=== PATIENT | male | born 1965 | race Hispanic/Latino ===

== ENCOUNTER 2017-08-27 10:48 | Outpatient (RCR) | payer OTHER ==
[~2017-08-27 10:48] MED LIST: ATORVASTATIN PO; INVOKAMET PO; LISINOPRIL10 MG PO; LOVAZA PO
== END 2017-09-01 ==
LOC: PT 10:48
PROVIDERS: ATTEND Family Medicine
DX: S39.012A Strain of muscle, fascia and tendon of lower back, initial encounter (principal); M54.5 Low back pain; M62.81 Muscle weakness (generalized)

== ENCOUNTER 2017-09-25 07:58 | Outpatient (RCR) | payer OTHER | END 2017-10-02 | LOC: PT 07:58 | PROVIDERS: ATTEND Family Medicine | DX: S33.5XXA Sprain of ligaments of lumbar spine, initial encounter (principal); M54.5 Low back pain; M62.81 Muscle weakness (generalized) ==

== ENCOUNTER 2017-12-25 09:00 | Outpatient (RCR) | payer OTHER | END 2018-01-02 | LOC: PT 09:00 | PROVIDERS: ATTEND Family Medicine | DX: S33.5XXA Sprain of ligaments of lumbar spine, initial encounter (principal); S63.502A Unspecified sprain of left wrist, initial encounter ==

== ENCOUNTER 2018-01-19 07:00 | Outpatient (RCR) | payer OTHER | END 2018-02-01 | LOC: PT 07:00 | PROVIDERS: ATTEND Family Medicine | DX: S33.9XXD Sprain of unspecified parts of lumbar spine and pelvis, subsequent encounter (principal); M54.5 Low back pain; M53.86 Other specified dorsopathies, lumbar region; M62.81 Muscle weakness (generalized) ==

== ENCOUNTER 2018-02-16 10:54 | Outpatient (RCR) | payer OTHER | END 2018-03-04 | LOC: PT 10:54 | PROVIDERS: ATTEND Family Medicine | DX: S33.9XXD Sprain of unspecified parts of lumbar spine and pelvis, subsequent encounter (principal); M54.5 Low back pain; M53.86 Other specified dorsopathies, lumbar region; M62.81 Muscle weakness (generalized) ==

== ENCOUNTER 2018-03-17 09:54 | Outpatient (RCR) | payer OTHER | END 2018-04-03 | LOC: PT 09:54 | PROVIDERS: ATTEND Family Medicine | DX: S33.9XXD Sprain of unspecified parts of lumbar spine and pelvis, subsequent encounter (principal); M54.5 Low back pain; M62.81 Muscle weakness (generalized); M53.86 Other specified dorsopathies, lumbar region ==

== ENCOUNTER → 2019-09-10 | Outpatient (CLI) | payer OTHER ==
--- NOTE | 2019-09-10 10:35 | Diagnostic Imaging Report ---
TECHNIQUE: Magnetic resonance imaging of the LEFT SHOULDER was performed WITHOUT injected contrast. COMPARISON: None available. HISTORY: Left shoulder FINDINGS: MUSCLES AND TENDONS: Rotator Cuff: Tendons: Small interstitial tear of the anterior fibers of the supraspinatus seen on sagittal image 11 and coronal image 11. Muscles: No focal muscle atrophy. Biceps Tendon: The long head of the biceps tendon is intact and within the intertubercular groove. GLENOHUMERAL JOINT: Glenoid Labrum: Superior labral tearing. Articular Cartilage: No focal defect. AC JOINT AND ACROMION: Mild hypertrophic degenerative changes of the acromioclavicular joint. The acromion is unremarkable. BONE: No acute fracture. SOFT TISSUES: Otherwise, the soft tissues appear unremarkable. IMPRESSION: Supraspinatus small interstitial tear of the anterior humeral insertion. No high-grade tear. Superior labral tear. Signed by: Dr. Braulio Resendez M.D. on 09/10/2019 10:32 AM
== END ==
LOC: MRI 09:27
PROVIDERS: ATTEND Specialist
DX: M75.102 Unspecified rotator cuff tear or rupture of left shoulder, not specified as traumatic (principal)

== ENCOUNTER → 2019-09-24 | Outpatient (CLI) | payer OTHER ==
[~2019-09-24] MED LIST changes: +ATORVASTATIN CA20 MG PO; +FAMOTIDINE 20 MG/2 ML VIAL IV ONE; +FENTANYL CITRATE/PF 100MCG/2 ML INJ ONE; +HYDROMORPHONE 1MG/1ML INJ ONE; +INVOKAMET 150-1 EACH PO; +LOVAZA1 GM PO; +TRULICITY0.75 MG/0. IJ
== END ==
LOC: DX 13:54 → EDBD 09-29 08:00 → MERGE 09-29 08:00 → EDSTATUS 09-29 08:00
PROVIDERS: ATTEND Specialist
DX: Z01.818 Encounter for other preprocedural examination (principal); Z11.59 Encounter for screening for other viral diseases
CPT/HCPCS: 87635; 93005; J1170; J3010

== ENCOUNTER → 2019-09-29 | Day surgery (SDC) | payer OTHER ==
[2019-09-24 17:51] LABS: ANION GAP 12.1 mmol/L (8-16); BLOOD UREA NITROGEN 15 mg/dL (7-26); BUN/CREATININE RATIO 15 (6-25); CALCIUM 9.2 mg/dL (8.4-10.2); CARBON DIOXIDE 24 mmol/L (22-29); CHLORIDE 107 mmol/L (98-107); CREATININE, SERUM 0.98 mg/dL (0.72-1.25); EST GLOMERULAR FILTRATION RATE > 60 ML/MIN (60-); GLUCOSE 115 mg/dL (74-118); POTASSIUM 4.1 mmol/L (3.5-5.1); SODIUM 139 mmol/L (136-145)
[~2019-09-29] MED LIST changes: +ACETAMINOPHEN 1000 MG/100 ML IV ONE; +CEFAZOLIN SOD 1 GM/NS 50ML 100 ML IV ONE; +DEXAMETHASONE SOD PHOS INJ 4 MG/ML VIAL ONE; +EPINEPHRINE 1 MG/ML 30ML VIAL ONE; +LIDOCAINE HCL 2% JELLY 5 ML TUBE ONE; +LIDOCAINE HCL 2% LOCAL INJ 5 ML SDV VIAL INJ ONE; +ONDANSETRON HCL INJ 2MG/ML 2ML 2 MG/ML VIAL ONE; +PROPOFOL IV EMULSION 10 MG/ML 20 ML VIAL ONE; +ROCURONIUM BROMIDE 10 MG/ML 5ML VIAL IV ONE; +ROPIVACAINE 0.5% 5 MG/ML 30 ML SDV ONE; +SEVOFLURANE INHAL SOLN 250 ML PEN BTL ONE
[2019-09-29 13:15] VITALS: BP 104/64
--- NOTE | 2019-10-08 21:11 | Operative Report ---
DATE OF PROCEDURE: 09/29/2019 SURGEON: Jasmeet Bejarano MD PREOPERATIVE DIAGNOSES: Left shoulder labral tear, left shoulder acromioclavicular joint arthritis. POSTOPERATIVE DIAGNOSES: Left shoulder arthrofibrosis, left shoulder synovitis, left shoulder labral tear, left shoulder arthroscopic rotator cuff reconstruction, left shoulder arthroscopic subacromial decompression and acromioplasty, and left shoulder arthroscopic distal clavicle resection. 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 ANESTHESIA: General endotracheal intubation anesthesia. IV FLUIDS: Per the anesthesia record. BRIEF DESCRIPTION OF THE PATIENT'S OPERATIVE PROCEDURE: Mr. Rodas was taken to the operating room and placed in supine position on the operating table. Following induction of general anesthesia as well as endotracheal intubation, the patient's left upper extremity was examined under anesthesia. He was found to have a normal-appearing shoulder. There was no evidence of instability in the shoulder. Passive forward flexion of the shoulder joint demonstrated 150 degrees of forward flexion, at which point significant stiffness was encountered in the shoulder. The shoulder was gently manipulated under anesthesia and thus resulted in freeing of fibrotic bands within the shoulder joint. This restored full passive forward flexion, abduction to the shoulder joint. The shoulder was then prepped and draped in standard surgical fashion. Standard posterior, lateral and anterior portals were created without difficulty. The scope was placed in the shoulder joint atraumatically. Examination of glenohumeral articulation demonstrated no significant evidence of chondromalacia. There was diffuse synovitis within the shoulder joint. There were no loose bodies within the shoulder. An anterior portal was created with an outside-in technique. A probe was placed in the shoulder joint and examination of the biceps tendon found that it was intact. The biceps anchor, however, was torn free from the superior rim of the glenoid from the 10 o'clock position to the 2 o'clock position. A shaver was placed in the shoulder joint and the superior rim of the glenoid was debrided. The labrum was also debrided at this time. Two knotless suture anchors were then inserted along the rim of the glenoid and the suture arms were woven about the labrum. The anchors were then seated firmly stabilizing the labrum to the superior rim of the glenoid. A probe was then used to assess the repair and excellent tension of the sutures with firm repair of the labrum was identified at this time. The shoulder was then deflated with sterile normal saline. The scope was then placed in subacromial space and significant bursal inflammation was encountered. A lateral portal was carried through an outside-in technique, and a bursectomy was performed. Examination of the bursal surface of the rotator cuff demonstrated a high-grade bursal surface tear of the rotator cuff at the leading edge of the rotator cuff tissue. An elevator was used to elevate this tissue from its normal insertion site and a single anchor was inserted into the tuberosity of the humerus. A shaver was used to debride the insertion site to a bleeding bony bed. The suture arms were then woven through the rotator cuff tissue and the rotator cuff was then advanced and tied firmly over its normal insertion site. This resulted in complete repair of this injury. The coracoacromial ligament was then resected and aggressive acromioplasty was performed. The shoulder was placed through range of motion and there was no impingement of the shoulder on the rotator cuff tissues. The scope was then placed in the anterior portal and the acromioclavicular joint was isolated. A 1 cm section of the acromion was then resected using the shaver. The shoulder was then inflated with sterile normal saline. All portal sites were closed. Soft dressings were applied and the patient was provided a shoulder immobilizer, awakened, and taken to the postanesthesia care in stable condition. MD LOU Contreras/ANNE-MARIE /[id number]
== END | disposition home or self-care (01) ==
LOC: OR 05:49
PROVIDERS: ATTEND Specialist
DX: S43.432A Superior glenoid labrum lesion of left shoulder, initial encounter (principal); M19.012 Primary osteoarthritis, left shoulder; M65.812 Other synovitis and tenosynovitis, left shoulder; M24.612 Ankylosis, left shoulder; E11.9 Type 2 diabetes mellitus without complications; E66.01 Morbid (severe) obesity due to excess calories; I10 Essential (primary) hypertension; X58.XXXA Exposure to other specified factors, initial encounter; Z01.810 Encounter for preprocedural cardiovascular examination
CPT/HCPCS: 29807; 29824; 29826; 29827; 36415 ×2; 80048; 82948; 93005 ×2; C1713; J0131; J0690; J1100; J1170; J2001 ×2; J2405; J2704; J2795; J3010

== ENCOUNTER 2019-12-31 09:00 | Outpatient (RCR) | payer OTHER ==
[~2019-12-31 09:00] MED LIST changes: -ACETAMINOPHEN 1000 MG/100 ML IV ONE; -CEFAZOLIN SOD 1 GM/NS 50ML 100 ML IV ONE; -DEXAMETHASONE SOD PHOS INJ 4 MG/ML VIAL ONE; -EPINEPHRINE 1 MG/ML 30ML VIAL ONE; -FAMOTIDINE 20 MG/2 ML VIAL IV ONE; -FENTANYL CITRATE/PF 100MCG/2 ML INJ ONE; -HYDROMORPHONE 1MG/1ML INJ ONE; -LIDOCAINE HCL 2% JELLY 5 ML TUBE ONE; -LIDOCAINE HCL 2% LOCAL INJ 5 ML SDV VIAL INJ ONE; -ONDANSETRON HCL INJ 2MG/ML 2ML 2 MG/ML VIAL ONE; -PROPOFOL IV EMULSION 10 MG/ML 20 ML VIAL ONE; -ROCURONIUM BROMIDE 10 MG/ML 5ML VIAL IV ONE; -ROPIVACAINE 0.5% 5 MG/ML 30 ML SDV ONE; -SEVOFLURANE INHAL SOLN 250 ML PEN BTL ONE
== END 2020-01-03 ==
LOC: OT 09:00
PROVIDERS: ATTEND Specialist
DX: M75.102 Unspecified rotator cuff tear or rupture of left shoulder, not specified as traumatic (principal)

== ENCOUNTER 2020-01-31 10:20 | Outpatient (RCR) | payer OTHER | END 2020-02-02 | LOC: OT 10:20 | PROVIDERS: ATTEND Specialist | DX: S46.002D Unspecified injury of muscle(s) and tendon(s) of the rotator cuff of left shoulder, subsequent encounter (principal); M25.512 Pain in left shoulder; M25.612 Stiffness of left shoulder, not elsewhere classified; R53.1 Weakness ==

== ENCOUNTER 2020-02-04 07:59 | Outpatient (RCR) | payer OTHER | END 2020-03-04 | LOC: OT 07:59 | PROVIDERS: ATTEND Specialist | DX: S46.002D Unspecified injury of muscle(s) and tendon(s) of the rotator cuff of left shoulder, subsequent encounter (principal); M25.512 Pain in left shoulder; M25.612 Stiffness of left shoulder, not elsewhere classified; R53.1 Weakness ==

== ENCOUNTER 2020-02-26 12:03 | Emergency (ER) | payer OTHER ==
[~2020-02-26] VITALS: Ht 167.6 cm; Wt 117.9 kg
[2020-02-26] MEDS ORDERED: LIDOCAINE HCL 1% LOCAL INJ 20 ML VIAL INJ ONE (12:45)
[2020-02-26] MEDS ORDERED: BUPIVACAINE HCL 0.5% 10ML MPF VIAL INJ ONE (12:45)
--- NOTE | 2020-02-26 13:53 | Diagnostic Imaging Report ---
X-ray 3 views HISTORY: Pain. COMPARISON: None available. FINDINGS: Bones/joints: There is an acute displaced fracture involving the distal phalangeal tuft of the thumb. No dislocation Soft tissues: There is soft tissue laceration in line with the fracture. IMPRESSION: Skin laceration with associated displaced fracture involving the distal phalangeal tuft of the thumb. Signed by: Avery Madrid MD on 02/26/2020 1:50 PM
--- NOTE | 2020-02-26 13:54 | Emergency Department Note ---
History of Present Illnes History of Present Illness Chief Complaint: Laceration History of Present Illness This is a 54 year old male PATIENT IN FROM HOME WITH COMPLAINTS OF ZELALEM ING THE TIP OF LEFT THUMB WITH A HATCHET WHILE CHOPPING WOOD; RATES PAIN 6/10; BLEEDING CONTROLLED, APPEARS IN NO DISTRESS, RESP EVEN AND NONLABORED. Historian: Patient Arrival Mode: Car Sash Maker Required: No Onset (how long ago): minute(s) Location: LEFT THUMB Quality: LACERATION Radiation: Reports non-radiation Severity: moderate Onset quality: sudden Timing of current episode: constant Progression: unchanged Chronicity: new Context: Reports trauma/injury; Denies recent illness Relieving factors: none Exacerbating factors: none Associated symptoms: Reports denies other symptoms Past Medical/Family History Physician Review I have reviewed the patient's past medical and family history. Any updates have been documented here. Past Medical History Recent Fever: No Clinical Suspicion of Infectio: No New/Unexplained Change in Ment: No Past Medical History: Hypertension, Diabetes, Hyperlipedemia Past Surgical History: Appendectomy Other Surgery: LEFT ROTATOR CUFF Social History Smoking Cessation: Never Smoker Counseling Performed: No Alcohol Use: Social Any Illegal Drug Use: No TB Exposure/Symptoms: No Physically hurt or threatened: No Family History Family history of heart diseas: No Other Any Pre-Existing Lines (PICC,: No Review of Systems Review of Systems Constitutional: Reports no symptoms EENTM: Reports no symptoms Cardiovascular: Reports no symptoms Respiratory: Reports no symptoms Gastrointestinal: Reports no symptoms Genitourinary: Reports no symptoms Musculoskeletal: Reports as per HPI Integumentary: Reports as per HPI Neurological: Reports no symptoms Psychological: Reports no symptoms Endocrine: Reports no symptoms Hematological/Lymphatic: Reports no symptoms Physical Exam Related Data Allergies: Coded Allergies: No Known Allergies (Unverified , 07/03/16) Triage Vital Signs Vital Signs Date Time Temp Pulse Resp B/P (MAP) Pulse Ox O2 Delivery O2 Flow Rate FiO2 02/26/20 12:07 97.1 91 18 99/61 99 Room Air Vital signs reviewed: Yes Physical Exam CONSTITUTIONAL Constitutional: Present well-developed, Present well-nourished HENT HENT: Present normocephalic, Present atraumatic, Present oropharynx clear/moist, Present nose normal HENT L/R: Present left ext ear normal, Present right ext ear normal EYES Eyes: Reports PERRL, Reports conjunctivae normal NECK Neck: Present ROM normal PULMONARY Pulmonary: Present effort normal, Present breath sounds normal CARDIOVASCULAR Cardiovascular: Present regular rhythm, Present heart sounds normal, Present capillary refill normal, Present normal rate GASTROINTESTINAL Abdominal: Present soft, Present nontender, Present bowel sounds normal GENITOURINARY Genitourinary: Present exam deferred SKIN Skin: Present warm, Present dry, Present other (PARTIAL AMPUTATION OF DISTAL THUMB INVOLVING NAIL/NAILBED) MUSCULOSKELETAL Musculoskeletal: Present ROM normal NEUROLOGICAL Neurological: Present alert, Present oriented x 3, Present no gross motor or sensory deficits PSYCHOLOGICAL Psychological: Present mood/affect normal, Present judgement normal Results Imaging Imaging results reviewed: Yes Assessment & Plan Medical Decision Making MDM PARTIAL AMPUTATION OF DISTAL LEFT THUMB - CHECK XRAY TO SEE IF BONE INVOLVEMENT, HAND SURGEON DR SIMMONS CONSULTED Reassessment Reassessment REPAIR BY DR SIMMONS, [facility], KEFLEX, TYL #3, OTC IBUPROFEN, F/U FRIDAY Assessment & Plan Final Impression: (1) Partial traumatic amputation of left thumb through phalanx Depart Disposition: HOME, SELF-CARE Last Vital Signs Date Time Temp Pulse Resp B/P (MAP) Pulse Ox O2 Delivery O2 Flow Rate FiO2 02/26/20 12:07 97.1 91 18 99/61 99 Room Air Home Meds Reported Medications Dulaglutide (Trulicity) 0.75 Mg/0.5 Ml Pen.injctr, IJ WEEKLY 09/29/19 Canagliflozin/Metformin HCl (Invokamet 150-1,000 mg Tablet) 1 Each Tablet, PO B ID 09/23/19 Atorvastatin Calcium (ATORVASTATIN CALCIUM) 20 Mg Tablet, 40 MG PO HS, #30 TAB 09/23/19 Lisinopril (LISINOPRIL) 10 Mg Tablet, 20 MG PO HS, TAB 09/23/19 [place]-3 Acid Ethyl Esters (LOVAZA) 1 Gm Capsule, 1 GM PO BID, CAP THERAPEUTICALLY SUBSTITUTED WITH OMEGA 3 FATTY ACID 09/23/19 Medications in the ED Lidocaine HCl 20 ml ONCE ONCE INJ ; Start 02/26/20 at 12:45; Stop 02/26/20 at 12:46; Status DC Bupivacaine HCl 10 ml ONCE ONCE INJ ; Start 02/26/20 at 12:45; Stop 02/26/20 at 12:46; Status DC NILTON JOVEL MD Feb 26, 2020 13:54
--- NOTE | 2020-02-28 08:33 | Operative Report ---
DATE OF PROCEDURE: 02/26/2020 SURGEON: Albania Overton MD PREPROCEDURE DIAGNOSIS: Left thumb nail bed injury, open fracture. POSTPROCEDURE DIAGNOSIS: Left thumb nail bed injury, open fracture. PROCEDURE PERFORMED: Irrigation and debridement of left thumb distal phalanx open fracture, left thumb nail bed repair, peripheral nerve block. 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 ANESTHESIA: Local only. COMPLICATIONS: None. SPECIMENS: None. ESTIMATED BLOOD LOSS: Minimal. INDICATIONS FOR PROCEDURE: Ben Rodas is a 54-year-old male, who sustained a left thumb fingertip partial amputation and nail bed injury. He presented to the emergency department and x-rays demonstrated a distal phalanx fracture and a nail bed injury and evaluation demonstrated nail bed injury. He was indicated for nail bed repair and debridement of the fracture. Benefits and risks of the surgery discussed with the patient including bleeding, infection, damage to vascular structures, need for additional surgery, persistent pain, nonunion, stiffness, possible loss of life or limb and knowing that he elects to proceed. DESCRIPTION OF PROCEDURE: The patient was identified in the emergency room. A preprocedural time-out was called and consent was obtained. The left thumb was then underwent a peripheral nerve block using 1% lidocaine and 0.5% Marcaine into the locally. Once appropriate anesthesia was obtained, it was then clamped and then prepped and draped in the usual sterile fashion. There was noted to be an oblique laceration along the radial aspect of the thumb before entering ulnar aspect of the nail bed. The wound was copiously irrigated. The open fracture of the distal phalanx was identified and was gently curetted out to debride the bone. Copious irrigation was then continued in the form to remove any hematoma or clot. After this was performed, the skin was then closed with 3-0 nylon sutures. The nail bed was then repaired anatomically using 6-0 plain catgut suture. Once this was performed, the nail bed was noted to line up nicely and with stabilization of the fingertip and the fracture. An Adaptic was placed beneath the nail fold followed by Xeroform and a soft sterile dressing followed by a finger splint. The fingers have remained warm and well-perfused at the conclusion of the procedure with excellent cap refill. A soft sterile dressing was then placed. The patient tolerated the procedure well without any immediate complications. POSTOPERATIVE PLAN: The patient will be discharged home today. He will see us back in clinic in five days for a wound check and transition to a fingertip protector. MD EVERETT Judd/MODL /[id number]
--- NOTE | 2020-02-28 08:38 | Consultation ---
DATE OF CONSULTATION: 02/26/2020 REQUESTING PHYSICIAN: Yuan Waddell MD CHIEF COMPLAINT: Left thumb pain. 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 He accidentally smashed his left thumb and sustained a partial fingertip amputation to the left thumb. He states that he had significant pain after just to the left thumb. He has a history of chronic numbness and tingling to that left hand that he has had since he was a child and had a wrist laceration. He denies any pain elsewhere. No pain up into his other fingers or anywhere else in the arm. No fevers or chills. PAST MEDICAL HISTORY: Type 2 diabetes. PAST SURGICAL HISTORY: None. 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 No drug, tobacco, or alcohol use. FAMILY HISTORY: Not pertinent. MEDICATIONS: None listed. REVIEW OF SYSTEMS: Negative for fever or chills. Positive for numbness and tingling. PHYSICAL EXAMINATION: EXTREMITIES: Focused evaluation of the left upper extremity demonstrates an oblique partial fingertip amputation through the nail bed of the left thumb. The nail plate has been avulsed. The fingertip appears warm and well perfused. He has active thumb extension and flexion at the thumb IP joint. He has atrophy of the thenar musculature and 0/5 APB function. There is a healed laceration present along the wrist crease from his prior wrist injury. Sensation is diminished in the fingertips in the median nerve distribution. No tenderness to palpation about the other fingers or wrist or elbow. Focused evaluation of the right upper extremity demonstrates skin intact. Sensation intact to light touch in all fingers. Intact thumb extension and flexion at the IP joint and 5/5 APB. IMAGING: X-rays of the left hand demonstrate a distal phalanx fracture. The left thumb appears to be very small without any significant displacement. ASSESSMENT: Left thumb nail bed injury, partial fingertip amputation. PLAN: Discussed with the patient the injury requires nail bed repair. Discussed with him that his fracture does not require any operative stabilization. Planned for nail bed repair in the emergency department, which he tolerated well. He will be discharged home with Keflex. To leave his dressing on until he will see us back in clinic in 5 days for wound check and transition to a fingertip protector. All questions were answered, he was in agreement with the plan. MD EVERETT Judd/MODL /[id number]
== END 2020-02-26 14:13 | disposition home or self-care (01) ==
LOC: ER 12:23
DX: S68.022A Partial traumatic metacarpophalangeal amputation of left thumb, initial encounter (principal); W27.8XXA Contact with other nonpowered hand tool, initial encounter; Y99.8 Other external cause status; I10 Essential (primary) hypertension; E11.9 Type 2 diabetes mellitus without complications; E78.5 Hyperlipidemia, unspecified
CPT/HCPCS: 11760; 73130; 99283; J2001

== ENCOUNTER 2020-05-03 10:36 | Outpatient (RCR) | payer OTHER | END 2020-05-04 | LOC: OT 10:36 | PROVIDERS: ATTEND Orthopaedic Surgery | DX: G56.02 Carpal tunnel syndrome, left upper limb (principal); R20.9 Unspecified disturbances of skin sensation; M25.642 Stiffness of left hand, not elsewhere classified; M25.632 Stiffness of left wrist, not elsewhere classified | CPT/HCPCS: 97110 ×3; 97165; L3808 ==

== ENCOUNTER 2020-05-23 08:58 | Outpatient (RCR) | payer OTHER ==
[2020-06-02] MEDS ORDERED: PIOGLITAZONE HC45 MG PO (15:36)
== END 2020-06-04 ==
LOC: OT 08:58
PROVIDERS: ATTEND Orthopaedic Surgery
DX: D36.12 Benign neoplasm of peripheral nerves and autonomic nervous system, upper limb, including shoulder (principal); G56.02 Carpal tunnel syndrome, left upper limb; R20.9 Unspecified disturbances of skin sensation; M25.642 Stiffness of left hand, not elsewhere classified; M25.632 Stiffness of left wrist, not elsewhere classified
CPT/HCPCS: 97010 ×4; 97110 ×4; 97140; L3906

== ENCOUNTER 2020-05-31 03:34 | Emergency (ER) | payer OTHER ==
[~2020-05-31] VITALS: Ht 167.6 cm; Wt 117.9 kg
== END 2020-05-31 04:00 | disposition home or self-care (01) ==
LOC: ER 03:39
DX: U07.1 COVID-19 (principal); R05 Cough; R50.9 Fever, unspecified; E11.9 Type 2 diabetes mellitus without complications; E78.5 Hyperlipidemia, unspecified
CPT/HCPCS: 99282

== ENCOUNTER 2020-06-02 13:30 | Inpatient (IN) | payer OTHER ==
[~2020-06-02] VITALS: Ht 167.6 cm; Wt 117.9 kg
[2020-06-02 14:39] LABS: BASOPHILS % 0.2 % (0.0-1.0); HEMATOCRIT 38.8 % (38.2-49.6); HEMOGLOBIN 12.8 g/dL (14.0-18.0); LYMPHOCYTES # (AUTO) 0.8 (1.0-3.2); LYMPHOCYTES % 5.2 % (18.0-39.1); MEAN CORPUSCULAR HEMOGLOBIN 28.6 pg (28-32); MEAN CORPUSCULAR VOLUME 86.6 fL (81-99); MONOCYTES # (AUTO) 0.9 (0.2-0.8); MONOCYTES % 5.9 % (4.4-11.3); PLATELET COUNT 263 x10e3/uL (140-360); RED BLOOD COUNT 4.48 x10e6/uL (4.3-5.7); RED CELL DISTRIBUTION WIDTH 14.9 % (11.7-14.4)
[2020-06-02 14:55] LABS: ALANINE AMINOTRANSFERASE 127 IU/L (0-55); ALBUMIN 2.7 g/dL (3.5-5.0); ALBUMIN/GLOBULIN RATIO 0.5 (0.8-2.0); ALKALINE PHOSPHATASE 144 IU/L (40-150); ANION GAP 17.3 mmol/L (8-16); BLOOD UREA NITROGEN 18 mg/dL (7-26); BUN/CREATININE RATIO 20 (6-25); CALCIUM 8.9 mg/dL (8.4-10.2); CARBON DIOXIDE 21 mmol/L (22-29); CHLORIDE 100 mmol/L (98-107); CREATINE KINASE 141 IU/L (30-200); CREATININE, SERUM 0.88 mg/dL (0.72-1.25); EST GLOMERULAR FILTRATION RATE > 60 ML/MIN (60-); GLUCOSE 118 mg/dL (74-118); POTASSIUM 4.3 mmol/L (3.5-5.1); SODIUM 134 mmol/L (136-145)
[2020-06-02] MEDS ORDERED: BENZONATATE 100 MG CAP PO SCH (15:00)
[2020-06-02 15:16] LABS: CHOL/HDL RATIO 5.2 (3.9-4.7)
[2020-06-02] MEDS ORDERED: PIOGLITAZONE HC45 MG PO (15:36)
[2020-06-02] MEDS ORDERED: GUAIFENESIN/CODEINE 10 ML CUP PO PRN (17:00)
[2020-06-02] MEDS ORDERED: ACETAMINOPHEN 325 MG TAB PO PRN (17:00)
[2020-06-02] MEDS ORDERED: ASCORBIC ACID 500 MG TAB PO SCH (17:00)
[2020-06-02] MEDS ORDERED: DEXTROSE 50% SYRINGE 50 ML IV PRN (17:00)
[2020-06-02] MEDS ORDERED: ENOXAPARIN SOD INJ 40 MG/0.4 ML SYR SC SCH (17:00)
[2020-06-02] MEDS: CEFTRIAXONE SOD 1 GM 50 ML IV SCH (18:29)
[2020-06-02] MEDS: FAMOTIDINE 20 MG/2 ML VIAL IV SCH (18:29)
[2020-06-02] MEDS: ASCORBIC ACID 500 MG TAB PO SCH (18:29)
[2020-06-02] MEDS ORDERED: REMDESIVIR 200MG/NS 100ML 200 MG in SODIUM CHLORIDE 0.9% 100 ML 100 ML IV ONE (19:30)
[2020-06-02] MEDS ORDERED: ZOLPIDEM TARTRATE 5 MG TAB PO PRN (21:00)
[2020-06-02] MEDS ORDERED: GUAIFENESIN/DEXTROMETHORPHAN LIQD 5 ML UDC NG SCH (22:00)
[2020-06-02] MEDS: AZITHROMYCIN 500MG/NS 250 ML 250 ML IV SCH (22:14)
[2020-06-02] MEDS: INSULIN REGULAR, HUMAN 100 UNIT/1 ML 3ML VIAL SQ SCH (23:30)
[2020-06-02 23:36] LABS: CREATINE KINASE 151 IU/L (30-200)
[2020-06-03 05:10] LABS: BASOPHILS % 0.2 % (0.0-1.0); EOSINOPHILS # (AUTO) 0.1 (0.0-0.4); EOSINOPHILS % 0.4 % (0.0-6.0); HEMOGLOBIN 12.7 g/dL (14.0-18.0); LYMPHOCYTES # (AUTO) 0.9 (1.0-3.2); LYMPHOCYTES % 4.8 % (18.0-39.1); MEAN CORPUSCULAR HEMOGLOBIN 28.9 pg (28-32); MEAN CORPUSCULAR HGB CONC 33.4 g/dL (31-35); MEAN CORPUSCULAR VOLUME 86.6 fL (81-99); MONOCYTES # (AUTO) 0.8 (0.2-0.8); MONOCYTES % 4.2 % (4.4-11.3); NEUTROPHILS # (AUTO) 16.3 (2.1-6.9); PLATELET COUNT 298 x10e3/uL (140-360); RED BLOOD COUNT 4.39 x10e6/uL (4.3-5.7); RED CELL DISTRIBUTION WIDTH 14.9 % (11.7-14.4)
[2020-06-03 05:34] LABS: ALANINE AMINOTRANSFERASE 113 IU/L (0-55); ALBUMIN 2.4 g/dL (3.5-5.0); ALBUMIN/GLOBULIN RATIO 0.4 (0.8-2.0); ALKALINE PHOSPHATASE 147 IU/L (40-150); ANION GAP 20.5 mmol/L (8-16); BLOOD UREA NITROGEN 24 mg/dL (7-26); BUN/CREATININE RATIO 29 (6-25); CALCIUM 9.3 mg/dL (8.4-10.2); CARBON DIOXIDE 20 mmol/L (22-29); CHLORIDE 100 mmol/L (98-107); CREATININE, SERUM 0.82 mg/dL (0.72-1.25); EST GLOMERULAR FILTRATION RATE > 60 ML/MIN (60-); GLUCOSE 124 mg/dL (74-118); POTASSIUM 4.5 mmol/L (3.5-5.1); SODIUM 136 mmol/L (136-145)
[2020-06-03] MEDS: ASCORBIC ACID 500 MG TAB PO SCH ×2 (08:26→17:50)
[2020-06-03] MEDS: FAMOTIDINE 20 MG/2 ML VIAL IV SCH ×2 (08:27→17:50)
[2020-06-03] MEDS ORDERED: DEXAMETHASONE SOD PHOS 10 MG/1 ML VIAL IV SCH (09:00)
[2020-06-03] MEDS ORDERED: MULTIVITAMINS/MINERALS TAB PO SCH (09:00)
[2020-06-03] MEDS ORDERED: ZINC SULFATE 220 MG CAP PO SCH (09:00)
[2020-06-03] MEDS: INSULIN REGULAR, HUMAN 100 UNIT/1 ML 3ML VIAL SQ SCH ×4 (12:09→21:58)
[2020-06-03] MEDS ORDERED: SODIUM CHLORIDE 0.9% 50ML 50 ML ONE (13:43)
[2020-06-03] MEDS ORDERED: REMDESIVIR IV SCH (14:00)
[2020-06-03] MEDS ORDERED: SODIUM CHLORIDE 0.9% IV SCH (14:00)
[2020-06-03] MEDS: CEFTRIAXONE SOD 1 GM 50 ML IV SCH (17:50)
[2020-06-03] MEDS: AZITHROMYCIN 500MG/NS 250 ML 250 ML IV SCH (18:38)
[2020-06-03] MEDS ORDERED: ENOXAPARIN SODIUM INJ 100 MG/ML SYR SC SCH (21:00)
== END 2020-06-03 23:40 | disposition home or self-care (01) | DRG 177 ==
LOC: ER 13:40 → ERHOLD 14:49
PROVIDERS: ADMIT Internal Medicine; ATTEND Internal Medicine
PROC: 8E0ZXY6 Isolation (ICD-10-PCS; principal; 2020-06-02)
PROC: XW033E5 Introduction of Remdesivir Anti-infective into Peripheral Vein, Percutaneous Approach, New Technology Group 5 (ICD-10-PCS; 2020-06-02)
DX: U07.1 COVID-19 (principal); J12.82 Pneumonia due to coronavirus disease 2019; J96.00 Acute respiratory failure, unspecified whether with hypoxia or hypercapnia; B19.9 Unspecified viral hepatitis without hepatic coma; E87.2 Acidosis; E87.1 Hypo-osmolality and hyponatremia; Z68.41 Body mass index [BMI] 40.0-44.9, adult; E11.9 Type 2 diabetes mellitus without complications; E78.5 Hyperlipidemia, unspecified; E66.01 Morbid (severe) obesity due to excess calories; Z87.891 Personal history of nicotine dependence; R74.01 Elevation of levels of liver transaminase levels
CPT/HCPCS: 36415; 71045; 80053; 80061; 82550; 82553; 82948; 83036; 84484; 85025; 99285; J0456; J0696; J1100; J1650; J1817; J7050; U0002